=== PATIENT | male | born 1950 | race Caucasian/White ===

== ENCOUNTER 2021-04-11 14:37 | Emergency (ER) | payer MEDICARE, OTHER ==
[~2021-04-11] VITALS: Ht 182.9 cm; Wt 90.6 kg
--- NOTE | 2021-04-11 16:20 | NUR ---
Pt sitting in room, NAD noted, and bleeding controlled with gauze dsg present to L index finger.
[2021-04-11] MEDS ORDERED: LIDOCAINE-MPF 1%, 5ML ONE (16:27)
[2021-04-11] MEDS ORDERED: LIDOCAINE 1%, 10ML INFIL ONE (16:30)
--- NOTE | 2021-04-11 16:45 | NUR ---
PA at bedside for suture. Set up provided with minimal assistance provided for bleeding control.
[2021-04-11] MEDS ORDERED: BACITRACIN ZINC OINT 500U/GM, 0.9 GM ONE (17:02)
--- NOTE | 2021-04-11 17:12 | NUR ---
Pt sutured and site cleaned/dressed by cardiothoracic anesthesia technician at this time. Awaiting D/C paperwork.
[2021-04-11 17:42] VITALS: BP 133/68
== END 2021-04-11 17:44 | disposition home or self-care (01) ==
LOC: ED 17:00
DX: S61.211A Laceration without foreign body of left index finger without damage to nail, initial encounter (principal); X58.XXXA Exposure to other specified factors, initial encounter; Y93.89 Activity, other specified; Y92.89 Other specified places as the place of occurrence of the external cause; Y99.8 Other external cause status
CPT/HCPCS: 12041; 99284